=== PATIENT | female | born 1960 | race Caucasian/White ===

== ENCOUNTER 2018-07-21 12:15 | Observation (INO) | payer BC ==
--- OUTSIDE RECORDS SUMMARY | 2018-07-21 12:32 | XMS REPORT | Summary of Care ---
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 Chronic fatigue and malaise (780.71, R53.82) Status: Active Metabolic syndrome (277.7, E88.81) Status: Active Medications Name Dates Details Gabapentin 100 MG TABS Refills: 0 Active Meloxicam 15 MG Oral Tablet Refills: 0 Active Omeprazole 20 MG Oral Tablet Delayed Release Refills: 0 Active B-12 TABS Refills: 0 Active Multi Vitamin TABS Refills: 0 Active Allergies and Adverse Reactions Name Dates Details Allergy history not documented Status: Past Medical History Name Dates Details History of No significant past medical history Status: Resolved Procedures Procedure Dates Details History Of Prior Surgery Completed Immunization Name Dates Details Immunizations not documented Social History Name Dates Details - Status: Name Dates Details Never smoker Vital Signs Date Test Result Details [id number] BP Systolic 120 mm[Hg] Status: BP Diastolic 78 mm[Hg] Status: Height 67 in Status: Weight 245 lb Status: Body Mass Index Calculated 38.37 kg/m2 Status: Body Surface Area Calculated 2.2 m2 Status: Heart Rate 73 /min Status: Respiration Rate 18 /min Status: O2 SAT 99 % Status: Comments: Source: RA Results Date Description Value Details Results not documented Plan of Care Name Dates Details Planned Observations Planned Goals not documented Planned Encounters Appointment; JASMINE ARAUJO M.D. On: 23-Feb-2018 15:15 Instructions Name Dates Details Instructions not documented Encounters Appointment; NICOLETTE AZEVEDO M.D. On: 13-Mar-2016 9:00 Encounter Diagnosis: Problem not documented Appointment; JASMINE ARAUJO M.D. On: 05-Jan-2018 14:30 Encounter Diagnosis: Problem not documented
[2018-07-21] MEDS ORDERED: HYDROMORPHONE HCL 1 MG/ML INJ IV PRN (13:19)
[2018-07-21] MEDS ORDERED: DIPHENHYDRAMINE 25 MG TAB/CAP PO PRN (14:00)
[2018-07-21] MEDS ORDERED: POLYETHYL GLY 3350 17 GM/DOSE PO PRN (14:00)
[2018-07-21] MEDS ORDERED: LOPERAMIDE HCL 2 MG CAPSULE PO PRN (14:00)
[2018-07-21] MEDS ORDERED: ONDANSETRON 4 MG/2 ML VIAL IV PRN (14:00)
[2018-07-21] MEDS ORDERED: NACHLORIDE 0.45% 1,000 ML IV SCH (14:00)
[2018-07-21] MEDS ORDERED: ONDANSETRON 4 MG (ODT) TAB PO PRN (14:00)
[2018-07-21 14:42] LABS: Absolute Lymphocytes (CBC) 1.6 K/uL (0.7-4.9); Absolute Monocytes 0.6 K/uL (0.1-1.3); Absolute Neutrophil 5.2 K/uL (1.8-8.0); Basophils % 0.7 % (0-1.3); Eosinophils % 1.3 % (0-4.4); Hematocrit 35.3 % (36.0-45.0); MPV 9.2 fL (7.6-11.3); Monocytes % 7.8 % (3.3-12.3); RBC Red Blood Cell Count 4.18 M/uL (3.86-4.86)
[2018-07-21 14:45] LABS: Protime INR 0.98
[2018-07-21 15:09] LABS: ALT/SGPT 25 U/L (12-78); AST/SGOT 17 U/L (15-37); Albumin 3.7 g/dL (3.4-5.0); Alkaline Phosphatase 88 U/L (45-117); BUN Blood Urea Nitrogen 15 mg/dL (7-18); Bicarbonate 29 mmol/L (21-32); Bilirubin Direct < 0.1 mg/dL (0-0.2); Bilirubin Total 0.4 mg/dL (0.2-1.0); Glucose Level 97 mg/dL (74-106); Phosphorus 3.7 mg/dL (2.5-4.9); Protein, Total 7.7 g/dL (6.4-8.2); Sodium Level 142 mmol/L (136-145)
--- NOTE | 2018-07-21 15:39 | RAD REPORT ---
EXAM DESCRIPTION: RAD - Chest Pa And Lat (2 Views) - 07/21/2018 3:00 pm CLINICAL HISTORY: pelvic abscess Chest pain. COMPARISON: Chest Pa And Lat (2 Views) dated 03/26/2016; CHEST PA AND LAT 2 VIEW dated 05/30/2010; CH EST PA AND LAT 2 VIEW dated 05/22/2010 FINDINGS: The lungs are clear. The heart is mildly prominent in size. No displaced fractures. IMPRESSION: Mild cardiomegaly.
[2018-07-21] MEDS: VANCOMYCIN 1.75 GM in NA CHLORIDE 0.9% 500 ML IVPB SCH (16:04)
--- NOTE | 2018-07-21 17:10 | EKG ---
Test Date: 2018-07-21 Test Time: 14:36:43 Body Shop Manager: FABIAN MEASUREMENT RESULTS: Intervals: Rate: 65 IL: 174 QRSD: 90 QT: 406 QTc: 422 [place]: P: 63 IL: 174 QRS: 55 T: 56 INTERPRETIVE STATEMENTS: Normal sinus rhythm Normal ECG No previous ECG available for comparison Electronically Signed On 07-21-18 17:08:56 CDT by Chino Ludwig
[2018-07-21] MEDS ORDERED: LIDOCAINE 1% MPF 5 ML VIAL ONE (19:38)
[2018-07-21] MEDS: ACETAMINOPHEN 325 MG TABLET PO PRN (21:04)
[2018-07-22] MEDS: VANCOMYCIN 1.75 GM in NA CHLORIDE 0.9% 500 ML IVPB SCH ×2 (03:43→16:00)
[2018-07-22 05:09] LABS: Urine Appearance CLOUDY; Urine Bilirubin NEGATIVE (NEG); Urine Blood NEGATIVE (NEG); Urine Color YELLOW; Urine Glucose NEGATIVE (NEG); Urine Protein NEGATIVE (NEG); Urine Specific Gravity 1.015 (1.005-1.030); Urine Urobilinogen 0.2 mg/dL (0.2-1.0)
[2018-07-22 05:12] LABS: Urine Microscopic Reflex ORDER UMIC
[2018-07-22 06:04] LABS: Urine Bacteria <20 /HPF (<20); Urine Culture Reflex Order NOT NEEDED; Urine RBC NONE SEEN /HPF (NONE SEEN)
[2018-07-22 06:47] LABS: Absolute Monocytes 0.6 K/uL (0.1-1.3); Absolute Neutrophil 3.9 K/uL (1.8-8.0); Basophils % 0.5 % (0-1.3); Eosinophils % 2.6 % (0-4.4); Hematocrit 33.4 % (36.0-45.0); Lymphocytes % 29.3 % (15.3-44.8); MPV 9.6 fL (7.6-11.3); Monocytes % 9.6 % (3.3-12.3); RBC Red Blood Cell Count 3.96 M/uL (3.86-4.86)
[2018-07-22] MEDS ORDERED: PREDNISONE 2.5 MG PO SCH (09:00)
[2018-07-22] MEDS ORDERED: ENOXAPARIN 40 MG/0.4 ML SQ SCH (09:00)
[2018-07-22] MEDS ORDERED: predniSONE 5 MG TAB PO SCH (09:00)
[2018-07-22] MEDS: ACETAMINOPHEN 325 MG TABLET PO PRN (13:52)
--- NOTE | 2018-07-22 21:35 | P.DS ---
Admission Date: 07/21/18 Discharge Date: 07/22/18 Disposition: ROUTINE DISCHARGE Discharge Condition: GOOD Hospital Course: ANGELI HAD I AND DONE BY DR PHIPPS. SHE IS STABLE AND DCED HOME. ABX ARE DECIDED BY DR. PHIPPS. WILL FU CULTURE. Vital Signs/Physical Exam: Temp Pulse Resp BP Pulse Ox 97.1 F 76 15 128/60 99 07/22/18 12:00 07/22/18 12:00 07/22/18 12:00 07/22/18 12:00 07/22/18 12:00 Laboratory Data at Discharge: WBC 6.7 K/uL (4.3-10.9) 07/22/18 05:31 Hgb 11.3 g/dL (12.0-15.0) L 07/22/18 05:31 Hct 33.4 % (36.0-45.0) L 07/22/18 05:31 Plt Count 234 K/uL (152-406) 07/22/18 05:31 PT 11.6 SECONDS (9.5-12.5) 07/21/18 14:27 INR 0.98 07/21/18 14:27 APTT 30.2 SECONDS (24.3-36.9) 07/21/18 14:27 Sodium 142 mmol/L (136-145) 07/21/18 14:27 Potassium 4.0 mmol/L (3.5-5.1) 07/21/18 14:27 BUN 15 mg/dL (7-18) 07/21/18 14:27 Creatinine 0.66 mg/dL (0.55-1.3) 07/21/18 14:27 Glucose 97 mg/dL (74-106) 07/21/18 14:27 Phosphorus 3.7 mg/dL (2.5-4.9) 07/21/18 14:27 Magnesium 2.0 mg/dL (1.8-2.4) 07/22/18 05:31 Total Bilirubin 0.4 mg/dL (0.2-1.0) 07/21/18 14:27 AST 17 U/L (15-37) 07/21/18 14:27 ALT 25 U/L (12-78) 07/21/18 14:27 Alkaline Phosphatase 88 U/L (45-117) 07/21/18 14:27 Home Medications: Naproxen Sodium [Aleve] 220 mg PO DAILY 07/21/18 Amoxicillin/Potassium Clav [Augmentin 875-125 Tablet] 1 each PO BID 10 Days #20 tablet 07/22/18 Polyethyl Gly 3350 [Glycolax*] 17 gm PO BEDTIME PRN PRN udbot 07/22/18 metroNIDAZOLE [Flagyl] 500 mg PO BID 10 Days #20 tablet 07/22/18 New Medications: Amoxicillin/Potassium Clav [Augmentin 875-125 Tablet] 1 each PO BID 10 Days #20 tablet metroNIDAZOLE [Flagyl] 500 mg PO BID 10 Days #20 tablet Patient Discharge Instructions: Irrigate and pack wound BID, finish all antibiotics. Call PRN any temperature > 101.4, increasing pain or redness around wound, or change in wound drainage. F/U in our office in 1 week. Followup: Kenneth Dang MD [Primary Care Provider] - Hamida Phipps MD [PROVISIONAL ASSOCIATE ACTIVE] -
== END 2018-07-22 16:34 | disposition home or self-care (01) ==
LOC: 2ND 12:27
PROVIDERS: ADMIT Internal Medicine; ATTEND Internal Medicine
PROC: 0U9M0ZZ Drainage of Vulva, Open Approach (ICD-10-PCS; principal; 2018-07-22)
DX: N76.4 Abscess of vulva (principal); K21.9 Gastro-esophageal reflux disease without esophagitis; J45.909 Unspecified asthma, uncomplicated; R76.0 Raised antibody titer; Q79.6 Ehlers-Danlos syndromes; L40.50 Arthropathic psoriasis, unspecified; K12.1 Other forms of stomatitis; L10.0 Pemphigus vulgaris; Z88.5 Allergy status to narcotic agent; Z88.8 Allergy status to other drugs, medicaments and biological substances
CPT/HCPCS: 36415; 71046; 80048; 80076; 81003; 81015; 82306; 82607; 83735; 84100; 84443; 85025; 85610; 85730; 87070; 87205; 93005; G0378; J7512

== ENCOUNTER 2020-02-08 10:46 | Observation (INO) | payer BC ==
--- OUTSIDE RECORDS SUMMARY | 2020-02-08 10:50 | XMS REPORT | Continuity of Care Document ---
:1960 Author Organization [facility] t Address [address] [place] [address] Care Team Providers Name Role Phone GAYLE Attending Clinician Unavailable JOLLY Attending Clinician Unavailable Problems Condition Condition Condition Status Onset Resolution Last Treating Co mments Source Name Details Category Date Date Treatment Clinician Date EDS EDS Problem Active Univers (Regine-Da (Regine-Da HL7.CCDAR2 ity of nlos nlos [place] syndrome) syndrome) Phys ici ans Dyspnea, Dyspnea, Problem Active Unive rs unspecifie unspecifie HL7.CCDAR2 ity of d type d type [place] Physici ans Chronic Chronic Problem Active Univers fatigue fatigue HL7.CCDAR2 ity of and and [place] malaise malaise Physici ans Metabolic Metabolic Problem Active Uni vers syndrome syndrome HL7.CCDAR2 it y of [place] Physici ans Allergies, Adverse Reactions, Alerts This patient has no known allergies or adverse reactions. Social History Smoking Status Start Date Stop Date Source Never smoker [facility]icians Medications Ordered Filled Start Stop Current Ordering Indication Dosage Frequency Signature Comments Components Source Medication Medication Date Date Medication? Clinician (SIG) Name Name Gabapentin Gabapentin Yes Uni vers 100 MG TABS 100 MG TABS i ty [facility] [place] [facility] Meloxicam Meloxicam Yes Unive rs 15 MG Oral 15 MG Oral ity of Tablet Tablet [place] Physici ans Omeprazole Omeprazole Yes Uni vers 20 MG Oral 20 MG Oral ity of Tablet Tablet [place] Delayed Delayed Physici Release Release ans B-12 TABS B-12 TABS Yes Unive rs ity of [place] [facility]ici ans Multi Multi Yes Univers Vitamin Vitamin ity of TABS TABS [place] [facility] ans Vital Signs Vital Name Observation Time Observation Value Comments Source BP Systolic 2018-01-05 13:34:00 120 mm[Hg] Universi ty [facility] Physician s BP Diastolic 2018-01-05 13:34:00 78 mm[Hg] Univers[facility] ty [facility] Physician s Height 2018-01-05 13:34:00 67 [in_us] [facility] [place] [facility] Weight 2018-01-05 13:34:00 245 [lb_av] [facility] [place] [facility] Body Mass Index 2018-01-05 13:34:00 38.37 kg/m2 Unive rs[facility] of [facility] Physician s Heart Rate 2018-01-05 13:34:00 73 /[facility] [place] [facility] Respiration Rate 2018-01-05 13:34:00 18 /min [facility] [place] [facility] O2 SAT 2018-01-05 13:34:00 99 % Source: RA [facility] Physician s Procedures Procedure Date / Time Performed Performing Clinician Sourc e PFT with?Methacholine 2018-01-05 00:00:00 [facility] Physicians CT Chest wo contrast 2018-01-05 00:00:00 [facility] [id number] Physicians History Of Prior [facility] ex Surgery Physicians Plan of Care Planned Activity Planned Date Details Comments Source Diagnostic Test 2018-01-05 CT Chest wo [facility] Pending 00:00:00 contrast 98771 Physicians [code = [id number]] Diagnostic Test 2018-01-05 PFT [facility] Pending 00:00:00 with?Methacholine Physicians Challenge [code = PFT with?Methacholine Challenge] Diagnostic Test 2018-01-05 CT Chest wo [facility] Pending 00:00:00 contrast [id number] Physicians [code = [id number]] Diagnostic Test 2018-01-05 PFT [facility] Pending 00:00:00 with?Methacholine Physicians Challenge [code = PFT with?Methacholine Challenge] Encounters Start End Encounter Admission Attending Care Care Encounter Source Date/Time Date/Time Type Type Clinicians Facility Department ID 2018-01-05 2018-01-05 SHAE Cantor Pulmonary & [id number] Univers 14:30:00 14:30:00 t; JASMINE ARAUJO Sleep [facility]y [facility] [place], M.D. [place] M.D. Physici ans 2016-03-13 2016-03-13 SHAE Santoyo UTP [id number] Univers 09:00:00 09:00:00 t; FARNICOLETTE SLOAN M.D. ity of [place] M.D. Physici ans Results This patient has no known results.
[2020-02-08] MEDS ORDERED: HYDROMORPHONE HCL 1 MG/ML INJ IV PRN (11:32)
[2020-02-08 11:38] VITALS: BMI 38.4
[2020-02-08] MEDS ORDERED: METHYLPREDNISOLONE 4 MG PO PRN (11:53)
[2020-02-08] MEDS ORDERED: DIPHENHYDRAMINE 25 MG TAB/CAP PO PRN (12:00)
[2020-02-08] MEDS ORDERED: ONDANSETRON 4 MG (ODT) TAB PO PRN (12:00)
[2020-02-08] MEDS ORDERED: ACETAMINOPHEN 325 MG TABLET PO PRN (12:00)
[2020-02-08] MEDS ORDERED: ONDANSETRON 4 MG/2 ML VIAL IV PRN (12:00)
[2020-02-08] MEDS ORDERED: POLYETHYL GLY 3350 17 GM/DOSE PO PRN (12:00)
[2020-02-08] MEDS ORDERED: LOPERAMIDE HCL 2 MG CAPSULE PO PRN (12:00)
[2020-02-08] MEDS ORDERED: NACHLORIDE 0.45% 1,000 ML IV SCH (12:00)
--- NOTE | 2020-02-08 12:12 | RAD REPORT ---
EXAM DESCRIPTION: Steve Single View02/08/2020 12:04 pm CLINICAL HISTORY: Chest pain COMPARISON: 2018 FINDINGS: The lungs appear clear of acute infiltrate. The heart is normal size IMPRESSION: No acute abnormalities displayed
[2020-02-08 12:15] LABS: Absolute Lymphocytes (CBC) 1.3 K/uL (0.7-4.9); Basophils % 0.8 % (0-1.3); Hematocrit 36.3 % (36.0-45.0); Lymphocytes % 19.4 % (15.3-44.8); RBC Red Blood Cell Count 4.27 M/uL (3.86-4.86)
[2020-02-08 12:38] LABS: BUN Blood Urea Nitrogen 13 mg/dL (7-18); Bicarbonate 29 mmol/L (21-32); Glucose Level 108 mg/dL (74-106); Magnesium 1.9 mg/dL (1.8-2.4); Potassium 3.6 mmol/L (3.5-5.1); Sodium Level 141 mmol/L (136-145)
[2020-02-08 12:54] LABS: Albumin 3.2 g/dL (3.4-5.0); Bilirubin Direct 0.1 mg/dL (0-0.2); Bilirubin Total 0.3 mg/dL (0.2-1.0); C-Reactive Protein 12.1 mg/L (<3.00); Phosphorus 2.2 mg/dL (2.5-4.9); Protein, Total 6.5 g/dL (6.4-8.2); Thyroid Stimulating Hormone 0.804 uIU/mL (0.360-3.740)
[2020-02-08] MEDS: ACETAMINOPHEN 500 MG TAB PO PRN ×2 (13:34→20:30)
[2020-02-08] MEDS: MECLIZINE HCL 12.5 MG TAB PO SCH ×2 (13:34→20:31)
[2020-02-08] MEDS ORDERED: HOME MED 1 EA UNK (Meclizine Hcl [Meclizine Hcl] 25 MG) PO SCH (14:00)
--- NOTE | 2020-02-08 16:38 | RAD REPORT ---
EXAM DESCRIPTION: MRI - MRA Head Wo Cont - 02/08/2020 3:26 pm CLINICAL HISTORY: Headaches, dizziness, diplopia COMPARISON: MR brain same date TECHNIQUE: Axial and coronal 3D [id number] image acquisition was performed. 3D rotational images were generated with source and reconstruction images reviewed. Horizontal and vertical axis rotation al views generated using MIP protocol. FINDINGS: Distal vertebral arteries are codominant with no vertebrobasilar suspicious finding. From skullbase to termination the internal carotid arteries show no dissection, stenosis or acute finding. Anterior, middle and posterior cerebral artery distributions also without significant finding. No aneurysm or vascular malformation. IMPRESSION: Unremarkable MRA head examination.
--- NOTE | 2020-02-08 16:40 | RAD REPORT ---
EXAM DESCRIPTION: MRI - Brain Wo Cont - 02/08/2020 3:26 pm CLINICAL HISTORY: rule out stroke COMPARISON: MRA Head Wo Cont dated 02/08/2020 TECHNIQUE: Sagittal T1-weighted images were obtained along with axial PD, heavily T2-weighted and T2 -FLAIR images. Axial DWI and ADC mapping sequences were also obtained along with coronal heavily T2-w eighted images. Additional coronal T2 hemo sequence obtained FINDINGS: No intracranial hemorrhage, mass or acute infarction. No evidence for old hemorrhagic miller ge of the brain parenchyma. There is no edema or shift of midline structures. No extra-axial fluid co llections. Cardona-matter/white matter junction is preserved. Signal voids are seen as a normal finding in the major intracranial vessels. No identifiable chronic ischemic change in the patient has no significant atrophy component. Ventricl es are normal. No globe or orbital content abnormality. Mastoid air cells and paranasal sinuses are clear. IMPRESSION: Negative non-contrast MRI of the Brain.
[2020-02-08] MEDS: POTASS/SODIUM PHOSPHATE 1 PKT POWD.PACK PO SCH ×3 (17:25→19:07)
[2020-02-08] MEDS ORDERED: POTASSIUM CL SA 10 MEQ TAB PO ONE (18:00)
--- NOTE | 2020-02-08 23:22 | CON ---
Reason For Consultation: Consultation was called by Dr. Dang because of possible stroke. History Of Present Illness: Ms. Valencia is a 59-year-old right-handed patient who comes int o the hospital with vertigo and double vision. She has multiple comorbid conditions including postur al orthostatic tachycardia syndrome, polymyalgia rheumatica, benign positional paroxysmal vertigo. S he developed sudden onset left-sided head pain with double vision and a sensation that she was tumbli ng forward or being pushed from behind. Symptoms sometimes she described them as falling upstairs an d had swinging or spinning. She developed severe nausea with vomiting over 2 days and had a double v ision [id number]. She noted double vision, was worse when looking to the left, and improved when l ooking to the right. She denied any asymmetry of the face, arm, or leg. No loss of sensation in the face, arm, or legs. At [facility], she was evaluated with a stroke protocol brain MRI ic h showed no acute ischemic or hemorrhagic stroke. MRA of the head showed no significant abnormalitie s in the intracranial vessels. She reports some slight improvement in her nausea and vomiting since hospitalization after she has received some IV fluids along with Zofran and meclizine. She is on DVT prophylaxis with Lovenox. Past Medical History: As indicated. Allergies: CODEINE, TRAMADOL, AND ADVAIR DISKUS. Family History: Noncontributory. Social History: No alcohol, tobacco, or IV drug use. The patient is and lives with . Review of Systems: Prior to her current symptoms, she denies any recent fevers, chills, nausea, vomiting, myalgias, arth ralgias, headache, weight change, rash, or psychiatric complaints. No gastrointestinal or genitourin stefanie issues other than mentioned above. Physical Examination: Vital Signs: Blood pressure 126/67, pulse 88, respiratory rate 18, temperature 97.7, oxygen saturati on 98% on room air. General: Ms. Valencia is resting in bed. She is in no significant distress. HEENT: She is normocephalic, atraumatic. Sclerae are anicteric. Oropharynx is pink and moist. Neck: Supple. Chest: Clear. Heart: Regular. Extremities: Show no edema, cyanosis, or clubbing. Neurologic: Alert; oriented to person, place, situation, and time. She has no expressive or recepti ve aphasias. Cranial nerves 2 through 12 remarkable for a right third nerve palsy. She has diplopia when looking to the left that resolves when looking to the right and it is [id number] diplopia and when the right eye is covered when looking to the left, the outer image disappears. Otherwise, she has no cranial nerve deficits. Motor examination in the upper and lower extremities, she has 5/5 str ength proximally and distally. Sensory exam intact with a slight stocking-glove loss to light touch. Temperature reflexes, symmetric, 1+ in upper and lower extremities except 0 at the heels. Coordina tion intact in upper and lower extremities. She will be ambulated with physical therapy using gait b elt. Laboratory Studies: Complete blood count with differential is normal. Coagulation panel is normal. INR 0.98. Her basic metabolic panel is normal, but she does have a low vitamin B12 level is low at 236. Her TSH is 0.804 and phosphorus is low at 2.2, glucose 185, calcium 8.5, magnesium 1.9. Urinal ysis is normal. Assessment: Ms. Valencia is a 59-year-old patient with likely benign paroxysmal positional vertigo. I n addition, she has a right third nerve palsy. She does not have a stroke by MRI. Plan: 1.She should be on aspirin 81 mg daily. 2.Continue with meclizine as scheduled. 3.IV fluids. 4.The patient may have the Bhavin maneuver performed. 5.She is likely to resolve the third nerve palsy over time as there is no evidence of any ischemic e vents in her brain MRI. 6.She should have eye exercises where she may hold an object in front of her and move the head back and forth while fixating on the object and also moving object from in front of her to the left and ri ght and move the eyes to follow the object while fixating the head. 7.The patient may be discharged home once her nausea and vomiting are addressed and follow up in Dr. Summers's clinic 1 month later. EVERTON/DAVID Voice ID: [id number] Report ID: [id number]
[2020-02-09 04:25] LABS: Protime INR 0.92
[2020-02-09 04:27] LABS: Absolute Lymphocytes (CBC) 1.8 K/uL (0.7-4.9); Basophils % 0.6 % (0-1.3); Hematocrit 34.1 % (36.0-45.0); Lymphocytes % 30.3 % (15.3-44.8); MPV 8.2 fL (7.6-11.3); RBC Red Blood Cell Count 4.01 M/uL (3.86-4.86)
[2020-02-09 04:30] LABS: BUN Blood Urea Nitrogen 13 mg/dL (7-18); Bicarbonate 30 mmol/L (21-32); Glucose Level 99 mg/dL (74-106); Magnesium 2.1 mg/dL (1.8-2.4); Potassium 4.1 mmol/L (3.5-5.1); Sodium Level 141 mmol/L (136-145)
[2020-02-09] MEDS: MECLIZINE HCL 12.5 MG TAB PO SCH (08:10)
[2020-02-09] MEDS: ACETAMINOPHEN 500 MG TAB PO PRN (08:10)
[2020-02-09 08:15] LABS: Urine Appearance CLEAR; Urine Bilirubin NEGATIVE (NEG); Urine Blood NEGATIVE (NEG); Urine Color YELLOW; Urine Glucose NEGATIVE (NEG); Urine Protein NEGATIVE (NEG); Urine Specific Gravity 1.015 (1.005-1.030); Urine Urobilinogen 0.2 mg/dL (0.2-1.0); Urine pH 5.5 (5.0-7.0)
[2020-02-09 08:32] LABS: Urine Microscopic Reflex NO UMIC
[2020-02-09 08:47] VITALS: BP 139/68; TEMP 97.3
[2020-02-09] MEDS ORDERED: ENOXAPARIN 40 MG/0.4 ML SQ SCH (09:00)
[2020-02-09 09:21] VITALS: O2SAT 99
[2020-02-11 23:09] LABS: Vitamin D 1,25-Dihydroxy Total 24 pg/mL (18-72); Vitamin D,1,25-OH2, D2 <8 pg/mL
== END 2020-02-09 10:52 | disposition home or self-care (01) ==
LOC: 2ND 10:46
PROVIDERS: ADMIT Internal Medicine; ATTEND Internal Medicine
DX: R42 Dizziness and giddiness (principal); H53.2 Diplopia; I49.8 Other specified cardiac arrhythmias; Z20.828 Contact with and (suspected) exposure to other viral communicable diseases; M35.3 Polymyalgia rheumatica; H49.01 Third [oculomotor] nerve palsy, right eye; K21.9 Gastro-esophageal reflux disease without esophagitis; J45.909 Unspecified asthma, uncomplicated; Q79.60 Ehlers-Danlos syndrome, unspecified; L40.50 Arthropathic psoriasis, unspecified; L10.0 Pemphigus vulgaris
CPT/HCPCS: 93005; 87040; 85025 ×2; 80048 ×2; 36415 ×2; 83735 ×2; 84100 ×2; 85610; 80076; 85730; 82652; 85652; 84443; 81003; 82607; 84238; 86140; 71045; 70551; 70544; U0002; G0378 ×3; J1650